=== PATIENT | male | born 1965 | race Caucasian/White ===

== ENCOUNTER 2017-11-11 05:02 | Emergency (ER) | payer OTHER ==
--- NOTE | 2017-11-11 05:22 | ED ---
General Adult HPI - General Source: patient, police, RN notes reviewed <Beny Lloyd - Last Filed: 11/11/17 06:31> <Beny Valente - Last Filed: 11/11/17 12:27> - General Stated complaint: mental health Time Seen by Provider: 11/11/17 05:09 - History of Present Illness Initial comments: 52-year-old male presents with police and chief complaint of hallucinations. Patient is homeless, he continually repeats "I'm done, I'm done". Denies suicidal plan or specific suicidal ideation. He states he has been visualizing rolled around him as if it with computer-generated. He is seeing red lights on cell phone towers and states he has very whole-body cold sensation when he sees these lites. Patient has past medical history of bipolar depression. Patient is uncertain if he has diagnosis of schizophrenia. According to police is made to calls requesting that they take him to [facility]. He has been on the cold for several days. According to the patient has been admitted for psychiatric reasons in the past. Denies any specific pain complaints. Denies nausea vomiting or diarrhea. Denies fever or chills. Denies difficulty breathing. ( Beny Lloyd) - Related Data Allergies Allergy/AdvReac Type Severity Reaction Status Date / Time No Known Allergies Allergy Verified 11/11/17 07:20 Review of Systems ROS Other: All systems not noted in ROS Statement are negative. <Beny Lloyd - Last Filed: 11/11/17 06:31> ROS Other: All systems not noted in ROS Statement are negative. <Beny Valente - Last Filed: 11/11/17 12:27> ROS Statement: Those systems with pertinent positive or pertinent negative responses have been documented in the HPI. General Exam General appearance: alert, in no apparent distress Head exam: Present: atraumatic, normocephalic Eye exam: Present: normal appearance, PERRL ENT exam: Present: mucous membranes dry Neck exam: Present: normal inspection. Absent: tenderness, meningismus Respiratory exam: Present: normal lung sounds bilaterally. Absent: respiratory distress Cardiovascular Exam: Present: regular rate, normal rhythm GI/Abdominal exam: Present: soft. Absent: distended, tenderness Extremities exam: Present: normal inspection, normal capillary refill. Absent: pedal edema Back exam: Present: normal inspection, full ROM Neurological exam: Present: alert, oriented X3, CN II-XII intact. Absent: motor sensory deficit Psychiatric exam: Present: depressed, flat affect, suicidal ideation Skin exam: Present: warm, dry. Absent: cyanosis, diaphoretic <Beny Lloyd - Last Filed: 11/11/17 06:31> Course <Beny Lloyd - Last Filed: 11/11/17 06:31> <Beny Valente - Last Filed: 11/11/17 12:27> Vital Signs 11/11/17 11/11/17 05:04 09:45 Temperature 97.7 F 97.8 F Pulse Rate 77 89 Respiratory 16 16 Rate Blood Pressure 157/90 107/57 O2 Sat by Pulse 99 100 Oximetry - Reevaluation(s) Reevaluation #1: 11/11/17 06:31 Patient is medically cleared awaiting EPS evaluation. (Beny Lloyd) Reevaluation #2: 11/11/17 0700 Patient's care is signed out to Dr. Valente at shift change awaiting EPS evaluation. (Beny Lloyd) Medical Decision Making <Beny Lloyd - Last Filed: 11/11/17 06:31> <Beny Valente - Last Filed: 11/11/17 12:27> - Medical Decision Making [facility] evaluation by psychiatry patient currently is not suicidal or homicidal. He is not a risk to himself or anyone else. Patient will be discharged the patient is awake alert oriented 3. (Beny Valente) - Lab Data Lab Results 11/11/17 Range/Units 05:56 Urine Opiates Screen Not Detected (NotDetected) Ur Oxycodone Screen Not Detected (NotDetected) Urine Methadone Screen Not Detected (NotDetected) Ur Propoxyphene Screen Not Detected (NotDetected) Ur Barbiturates Screen Not Detected (NotDetected) U Tricyclic Antidepress Not Detected (NotDetected) Ur Phencyclidine Scrn Not Detected (NotDetected) Ur Amphetamines Screen Not Detected (NotDetected) U Methamphetamines Scrn Not Detected (NotDetected) U Benzodiazepines Scrn Not Detected (NotDetected) Urine Cocaine Screen Not Detected (NotDetected) U Marijuana (THC) Screen Not Detected (NotDetected) Disposition <Beny Lloyd - Last Filed: 11/11/17 06:31> <Beny Valente - Last Filed: 11/11/17 12:27> Clinical Impression: Adjustment reaction Disposition: HOME SELF-CARE Condition: Good Instructions: Mood Disorders (ED) Referrals: Nonstaff,Physician [Primary Care Provider] - 1-2 days
[2017-11-11 05:29] VITALS: RESP 16
[2017-11-11 06:31] LABS: Amphetamine Screen,Urine Not Detected (NotDetected); Benzodiazepines Screen,Urine Not Detected (NotDetected); Cocaine Screen,Urine Not Detected (NotDetected); Methadone Screen, Urine Not Detected (NotDetected); Opiate Screen,Urine Not Detected (NotDetected); Phencyclidine Screen,Urine Not Detected (NotDetected); Tricyclic Antidepressant,Urine Not Detected (NotDetected)
[2017-11-11 06:32] LABS: Barbiturate Screen,Urine Not Detected (NotDetected); Oxycodone Screen, Urine Not Detected (NotDetected); Urn Cannabinoid Scrn Not Detected (NotDetected)
[2017-11-11 09:45] VITALS: BP 107/57; PULSE 89; TEMP 97.8
== END 2017-11-11 12:31 | disposition home or self-care (01) ==
LOC: EC 05:02
DX: F43.20 Adjustment disorder, unspecified (principal); R44.3 Hallucinations, unspecified
CPT/HCPCS: 80306; 82075; 99284